=== PATIENT | male | born 1975 | race Caucasian/White ===

== ENCOUNTER 2018-12-16 22:58 | Emergency (ER) | payer BC ==
[2018-12-16 23:15] VITALS: BP 161/82
[2018-12-16] MEDS ORDERED: Lidocaine 1% 20 ML MDV INJECT ONE (23:28)
--- NOTE | 2018-12-16 23:32 | EDM.PDOC ---
ED HPI GENERAL MEDICAL PROBLEM - General Chief Complaint: Laceration Stated Complaint: RIGHT PALM PUNCTURE WOUND Time Seen by Provider: 12/16/18 23:29 Source of Information: Reports: Patient History Limitations: Reports: No Limitations - History of Present Illness INITIAL COMMENTS - FREE TEXT/NARRATIVE: pt was putting wood in the fire and a sliver went into the thenar aspect of the hand on the tafoya side. --rt. He now has pain in the hand. He is current with his tetanus the last being in 2016. Onset: Sudden Duration: Hour(s): Location: Reports: Upper Extremity, Right Associated Symptoms: Reports: No Other Symptoms Treatments [employer] [place]: Reports: Dressing(s) Right Hand Pain Score (Numeric/FACES): 3 - Related Data Allergies Allergy/AdvReac Type Severity Reaction Status Date / Time amoxicillin Allergy Cannot Verified 12/16/18 23:15 Remember Home Meds: Home Meds NK [No Known Home Meds] 04/28/15 [History] Past Medical History - Past Health History Medical/Surgical History: Denies Medical/Surgical History - Infectious Disease History Infectious Disease History: Reports: Chicken Pox Social & Family History - Family History Family Medical History: Noncontributory - Tobacco Use Smoking Status *Q: Never Smoker - Caffeine Use Caffeine Use: Reports: Soda - Recreational Drug Use Recreational Drug Use: No ED ROS GENERAL - Review of Systems Review Of Systems: See Below Constitutional: Reports: No Symptoms HEENT: Reports: No Symptoms Respiratory: Reports: No Symptoms Cardiovascular: Reports: No Symptoms Endocrine: Reports: No Symptoms GI/Abdominal: Reports: No Symptoms : Reports: No Symptoms Musculoskeletal: Reports: Other ( sliver in the tafoya aspect of the rt hand. ) Skin: Reports: No Symptoms ED EXAM, SKIN/RASH Exam: See Below Text/Narrative:: t arrived with a puncture wound in the thenar aspect of the rt hand. He had a sliver go in the site. He was concerned whether any wood is left in the hand. He is current with his tetanus. Exam Limited By: No Limitations General Appearance: Alert, Anxious, Mild Distress Extremities: Other ( rt had has a 1/4 inch puncture wound in the thenar aspect of the rt hand. This was cleansed well and injected with lidocaine. The wiound was probed and some small pieces of wood was found but no large sliver appeared to remain. The top of the wound was closed tith 5-0 prolene --3 stitches. The bottom of the wound was left open for drainage. ) Neurological: Alert Course - Vital Signs Last Recorded V/S: Last Vital Signs Temp 35.4 C 12/16/18 23:12 Pulse 81 12/16/18 23:12 Resp 16 12/16/18 23:12 BP 161/82 H 12/16/18 23:12 Pulse Ox 98 12/16/18 23:12 - Orders/Labs/Meds Meds: Medications Discontinued Medications Generic Name Dose Route Start Last Admin Trade Name Tomásq PRN Reason Stop Dose Admin Lidocaine HCl 20 ml 12/16/18 23:28 12/16/18 23:42 Xylocaine 1% INJECT 12/16/18 23:29 20 ml ONETIME ONE Administration Departure - Departure Time of Disposition: 00:04 Disposition: Home, Self-Care 01 Condition: Fair Clinical Impression: Puncture wound - Discharge Information Referrals: PCP,None [Primary Care Provider] - Forms: ED Department Discharge Care Plan Goals: soak in soapy solution once daily, apply bacatraacin to the wound and keep covered, keflex 500mg tid for 1 week,. motrin 600mg q6h as needed for pain. sutures out in 8 days.
[2018-12-17] MEDS ORDERED: Ibuprofen 600 MG Tab PO ONE (00:06)
[2018-12-17] MEDS ORDERED: Bacitracin Oint 1 GM U/D Packet TOP ONE (00:06)
== END 2018-12-17 00:38 | disposition home or self-care (01) ==
LOC: JP.ED 22:58
DX: S61.441A Puncture wound with foreign body of right hand, initial encounter (principal); Z88.1 Allergy status to other antibiotic agents; W45.8XXA Other foreign body or object entering through skin, initial encounter
CPT/HCPCS: 12001; 99283; A9270; J2001